=== PATIENT | female | born 2000 | race Caucasian/White ===

== ENCOUNTER 2018-08-13 03:03 | Emergency (ER) | payer BC, SELFPAY ==
[2018-08-13 03:12] VITALS: BP 123/77; PULSE 72; RESP 15; TEMP 36.3; O2SAT 98
--- NOTE | 2018-08-13 03:32 | ED.GENADUL_ITS ---
Discharge Plan Disposition Patient Disposition: HOME Condition: Good Discharge Details Chief Complaint: PsychEval Clinical Impression: Depression Primary Care Provider: Sobeida Silva ED Provider: Julio Hernandez Home Meds and New Rx's Prescriptions: No Action zonisamide 100 mg capsule 100 mg PO .AM RF: 0 medroxyprogesterone [Depo-Provera] 150 mg/mL suspension 150 mg IM [id number] RF: 0 aripiprazole 15 mg tablet 7.5 mg PO DAILY RF: 0 atomoxetine 60 mg capsule 60 mg PO DAILY RF: 0 vilazodone 40 mg tablet 40 mg PO DAILY RF: 0 cetirizine 10 mg tablet 10 mg PO DAILY RF: 0 levothyroxine [Unithroid] 75 mcg tablet 75 mcg PO DAILY RF: 0 ProAir HFA 90 mcg/actuation HFA aerosol inhaler 2 puff IH QID RF: 0 fluticasone 50 mcg/actuation spray,suspension 2 spray HARMEET DAILY RF: 0 melatonin 10 mg tablet 10 mg PO HS PRNRF: 0 Discharge Instructions Instructions: Depression (ED) Additional Instructions: Please utilize the resources of counseling, and follow-up that have been provided to you. Please use the appetite has been recommended to you by the mental health worker. If you have any thoughts of self-harm please call 911 and return immediately. If you notice any worsening of your symptoms, or any new symptoms such as vomiting, diarrhea, fever, chills, shortness of breath, chest pain, numbness, weakness, or fainting , please return immediately to the emergency department for reevaluation. Please follow up with your primary care provider as soon as possible for reassessment and reevaluation. As always, it was a pleasure participating in your medical care today. Referrals: Sobeida Silva [Primary Care Provider] - Medical Decision Making This is a pleasant 18-year-old female who presents for suicidal ideations. 3 has a history of suicidal attempt taking multiple pills, she has been at a rehab facility for quite some time was recently discharged in his started school at [employer]. She has been having a very hard time transitioning into this role, and feels that her chronic thoughts of suicide have become notably prominent, climaxing tonight with wanting to end her life. She has a plan it would be to take pills or cut herself deeply. She did perform a couple superficial abrasions over her left wrist, but no deep cuts. Tetanus is up-to-date. with the patient's clinical history, current complaints, I do feel that mental health evaluation is indicated, we will perform laboratory workup, and get a one-to-one. We have contacted mental health and they are coming to assess the patient. 5:11 AM Patient's laboratory workup is returned benign, TSH is slightly elevated however free T4 is normal. The patient was assessed by Angelique the mental health worker, and at this time chain feels that I believe the patient is safe for discharge home, I feel she can go home safely with close follow-up. She feels that after a long and thorough discussion with the patient that she does not actually have an acute plan to kill herself or the will to do it at this time. Patient is requesting discharge and does not want to be admitted to the facility at this time. Safety plan has been contracted with the patient, mental health worker, and the patient's significant other. We have elicited the help of the [employer] security staff as well. All sharp objects will be removed from the patient's room. Patient does have close follow-up with mental health on an outpatient basis this week. We discussed red flags which to return. I have extensively reviewed the treatment plan and discharge instructions with the patient. I have addressed all patient concerns at this time. The patient was made aware of what symptoms to monitor for that would warrant a return to the emergency department. Discussed the plan with the patient, they demonstrate verbal understanding and agreement with our assessment and plan at this time. HPI General Date/Time Provider Initiated Documentation: 08/13/18 03:20 . HPI Narrative: This is a 26-year-old female with a past medical history of depression, suicidal ideations, seizure, ADD, attempted suicide in the past via taking pills/excess trazodone, who presents today for evaluation of depression and suicidal thoughts. Patient states that she was at a rehab facility [place] for quite some time, and recently transitioned out of this to the local college here in [place]. She has been at college for the last 2 weeks and states that it is not been going well. She states that she always feels depressed and passively wants to hurt her self but while at the rehab facility those feelings were under control although still present. She states over the last 2 weeks they have notably grown and worse and now she is at the point where she is actively thinking of killing herself or taking her life. She states that earlier today she had continued thoughts of self-harm and took a clean kitchen knife and perform superficial abrasions to her left wrist. She then contacted mental health at her college who then brought her here. Patient denies taking any illicit drugs, access medications, or other things currently. She states that to kill herself she would either take a bunch of pills or cut herself deeply in the wrist. She denies any IV or illicit drug use. She denies any pertinent family history. She denies any other complaints or modifying factors at this time. Related Data Home Medications Medication Instructions Recorded Confirmed albuterol sulfate HFA 90 2 puff IH QID 07/19/18 08/13/18 mcg/actuation aerosol inhaler aripiprazole 15 mg tablet 7.5 mg PO DAILY tab 07/19/18 08/13/18 atomoxetine 60 mg capsule 60 mg PO DAILY 07/19/18 08/13/18 cetirizine 10 mg tablet 10 mg PO DAILY 07/19/18 08/13/18 fluticasone 50 mcg/actuation nasal 2 spray HARMEET DAILY 07/19/18 07/19/18 spray,suspension levothyroxine 75 mcg tablet 75 mcg PO DAILY 07/19/18 08/13/18 medroxyprogesterone 150 mg/mL 150 mg IM [id number] 07/19/18 07/19/18 intramuscular suspension melatonin 10 mg tablet 10 mg PO HS PRN 07/19/18 08/13/18 vilazodone 40 mg tablet 40 mg PO DAILY 07/19/18 08/13/18 zonisamide 100 mg capsule 100 mg PO .AM cap 07/19/18 08/13/18 Allergies Allergy/AdvReac Type Severity Reaction Status Date / Time No Known Allergies Allergy Verified 08/13/18 03:16 General Stated Complaint: PsychEval DENISE: 2 Review of Systems Review of Systems All systems reviewed & are unremarkable except as noted in HPI and below PFSH Medical History Anorexia (Acute) History of wisdom tooth extraction (Acute) Juvenile myoclonic epilepsy (Acute) Left fibular fracture (Acute) Hypothyroidism (Chronic) Family History Mother Uterine cancer Sad Father Alcohol abuse Paternal Grandfather Parkinsons Prostate cancer Maternal Grandfather Colon cancer Maternal Grandfather Colon cancer Maternal Grandmother Myocardial infarct Brother Asperger's syndrome Sister Healthy adult Social History Smoking/Tobacco Use Status: Current every day Exam Narrative Exam Narrative: 1.Const: Well-nourished, Well-developed, appearing stated age 2.Eyes: PERRL, no conjunctival injection, and symmetrical lids. 3.ENT: Atraumatic external nose and ears. Moist MM. Neck: Symmetric, trachea midline, No thyromegaly. 4.CVS: +S1/S2, No murmurs or gallops. Peripheral pulses 2+ and equal in all extremities. Brisk capillary refill in all extremities. 5.RESP: Unlabored respiratory effort. Clear to auscultation bilaterally. No wheezes rales or rhonchi 6.GI: Soft, Nontender/Nondistended, No hepatosplenomegaly. No guarding or rebound. 7.MSK: Normocephalic/Atraumatic, Extremities w/o deformity or ttp No cyanosis or clubbing, Normal movement of all extremities 8.Skin: Warm, Dry. 4-5 very small superficial abrasions over the left wrist. No evidence of lacerations, deep cuts, and something needing suturing. 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 Sensation grossly intact, no focal neurologic deficits. 10.Psych: (AAO) x3. Appropriate mood and affect Course Vital Signs Temperature 36.3 C L 08/13/18 03:12 Pulse 72 08/13/18 03:12 Respiratory Rate 15 08/13/18 03:12 Blood Pressure 123/77 08/13/18 03:12 Pulse Oximetry 98 08/13/18 03:12 Temperature 36.3 C L 08/13/18 03:12 Temperature Source Temporal Artery Scan 08/13/18 03:12 Pulse 72 08/13/18 03:12 Respiratory Rate 15 08/13/18 03:12 Respiratory Effort Non-Labored 08/13/18 03:19 Blood Pressure 123/77 08/13/18 03:12 Blood Pressure Position Sitting 08/13/18 03:12 Pulse Oximetry 98 08/13/18 03:12 Oxygen Delivery Method Room Air 08/13/18 03:12 Oxygen Flow Rate 0 08/13/18 03:12 Pain Level 2 08/13/18 03:12
[2018-08-13 04:02] LABS: Abs Immature Grans 0.01 k/cumm (0.0-0.09); Absolute Basophil Count 0.05 k/cumm (0.0-0.2); Absolute Eosinophil Count 0.23 k/cumm (0.0-0.7); Absolute Monocyte Count 0.55 k/cumm (0.11-0.7); Absolute Neutrophil Count 4.34 k/cumm (1.2-6.7); Basophils % 0.6; HCT 41.2 % (36.0-46.0); HGB 13.5 g/dL (12.0-15.5); Immature Grans % 0.1; Lymphocytes % 33.4; Mean Corp. HGB Concentration 32.8 g/dL (32.0-36.0); Mean Corpuscular Hemoglobin 27.5 pg (27.0-33.0); Mean Corpuscular Volume 83.9 fL (80-95); Mean Platelet Volume 11.6 fL (8.0-11.0); Monocytes % 7.1; Neutrophils % 55.8; Platelet Count 227 x1000/uL (130-400); RBC 4.91 m/cumm (4.00-5.20); RBC Distribution Width 13.5 % (11.7-14.6); White Blood Cell Count 7.78 k/cumm (4.4-10.8)
[2018-08-13 04:10] LABS: *AMPHETAMINES SCREEN URINE Negative (Negative); *BARBITURATES SCREEN URINE Negative (Negative); *BENZODIAZEPINES SCREEN URINE Negative (Negative); Cannabinoids THC Negative (Negative); Cocaine Screen,Urine Negative (Negative); METHADONE URINE SCREEN Negative (Negative); OPIATES URINE SCREEN Negative (Negative)
[2018-08-13 04:13] LABS: ETHANOL BLOOD < 3.0 mg/dL (<3)
[2018-08-13 04:13] LABS: Tricyclic Antidepressants Negative (Negative)
[2018-08-13 04:21] LABS: ALT 24 U/L (12-78); AST 21 U/L (15-37); Albumin 3.8 g/dL (3.4-5.0); Alkaline Phosphatase 95 U/L (46-116); Anion Gap 14.6 mmol/L (3-11); BUN 14 mg/dL (7-18); Bilirubin, Total 0.2 mg/dL (0.2-1.0); CO2 20.4 mmol/L (21.0-32.0); CREATININE 0.91 mg/dL (0.55-1.02); Calcium 9.1 mg/dL (8.5-10.1); Chloride 106 mmol/L (98-107); Glucose 107 mg/dL (70-100); Potassium 3.9 mmol/L (3.5-5.1); Sodium 141 mmol/L (136-145); TSH (W/Ref FT4) 8.55 uIU/mL (0.358-3.74); Total Protein 7.8 g/dL (6.4-8.2)
[2018-08-13 04:53] LABS: FREE T4 0.96 ng/dL (0.76-1.46)
--- NOTE | 2018-08-13 05:00 | NUR.NOTE ---
Nursing Note: Pt states she has texted male partner Maria Del Rosario Rodas, who will come to ED to participate in safety planning. Pt has also provided 2 numbers for public safety at [facility]...will call at provider's request to involve in safety planning.
[2018-08-13 05:14] LABS: Salicylate < 2.8 mg/dL (2.8-20.0)
[2018-08-13 05:17] LABS: Acetaminophen < 2 ug/mL (10-30)
--- NOTE | 2018-08-13 05:55 | PDOC.MHCN ---
Date of service: 08/13/18 Time of Service: 05:56 Mental Health Crisis Note Presenting Issue How did you arrive at the ED and why did you come: Patient had cut her wrist in an attempt to suicide. she was brought to ED by safety personnel from [facility]. She has just started classes after being in a residential treatment center for one year. Precipitating Factors Patient is a 18 yo female who is in hospital today because of her suicidal ideation. She had been in her dorm and got up and found a knife at the sink and cut herself. she reports having constant suicidal thoughts and not just one thing triggers these thoughts. She is alert and oriented, she does not have audio or visual hallucinations , just her own voice saying she wants to . This is an ongoing issue since she was in 2nd grade. She was a resident at [facility] in [place], [place] for one year and just started college 3 weeks ago. she is having a difficult time transitioning to college. Disposition BEHAVIOR: Her behavior is cooperative and friendly. EYE CONTACT: She makes good eye contact MOOD: Her mood is depressed. AFFECT: Her affect is congruent to mood., APPETITE: She is eating well. SLEEP(trouble falling/staying asleep: She has trouble falling and staying asleep. Plan Patient has contracted for [employer], and completed a safety plan that includes information about contacting [facility] or the suicide hotline. She has an appointment scheduled with her private therapist on Monday and appointment with [facility] on Monday. She has identified support people she has agreed to contact Emergency Services if her coping strategies are not working and she is in need of support., Dr. Hernandez discussed a safety plan with her and her boyfriend to include removing knives from the residence and taking any unprescribed medication. Follow up contact will be made from Emergency Services clinician from [facility]. Signature Clinician's Name/Title: Angelique Mitchell [facility] Emergency Services Clinician
[2018-08-13 06:07] VITALS: BP 124/78; PULSE 70; RESP 15; O2SAT 98
--- NOTE | 2018-08-13 06:09 | PDOC.MHCN_ITS ---
Date of service: 08/13/18 Time of Service: 05:56 Mental Health Crisis Note Presenting Issue How did you arrive at the ED and why did you come: Patient had cut her wrist in an attempt to suicide. she was brought to ED by safety personnel from [facility]. She has just started classes after being in a residential treatment center for one year. Precipitating Factors Patient is a 18 yo female who is in hospital today because of her suicidal ideation. She had been in her dorm and got up and found a knife at the sink and cut herself. she reports having constant suicidal thoughts and not just one thing triggers these thoughts. She is alert and oriented, she does not have audio or visual hallucinations , just her own voice saying she wants to . This is an ongoing issue since she was in 2nd grade. She was a resident at [facility] in [place], [place] for one year and just started college 3 weeks ago. she is having a difficult time transitioning to college. Disposition BEHAVIOR: Her behavior is cooperative and friendly. EYE CONTACT: She makes good eye contact MOOD: Her mood is depressed. AFFECT: Her affect is congruent to mood., APPETITE: She is eating well. SLEEP(trouble falling/staying asleep: She has trouble falling and staying asleep. Plan Patient has contracted for [employer], and completed a safety plan that includes information about contacting [facility] or the suicide hotline. She has an appointment scheduled with her private therapist on Monday and appointment with [facility] on Monday. She has identified support people she has agreed to contact Emergency Services if her coping strategies are not working and she is in need of support., Dr. Hernandez discussed a safety plan with her and her boyfriend to include removing knives from the residence and taking any unprescribed medication. Follow up contact will be made from Emergency Services clinician from [facility]. Signature Clinician's Name/Title: Angelique Mitchell [facility] Emergency Services Clinician
== END 2018-08-13 06:05 | disposition home or self-care (01) ==
PROVIDERS: Emergency Provider Student in an Organized Health Care Education/Training Program; PCP Physician Assistant Medical
DX: F32.9 Major depressive disorder, single episode, unspecified (principal); Z91.5 Personal history of self-harm
CPT/HCPCS: 36415; 80053; 80307; 81025; 99285; 80320; 80329; 84439; 84443; 85025; 99283

== ENCOUNTER 2018-10-12 11:42 | Emergency (ER) | payer BC, SELFPAY ==
[2018-10-12 11:47] VITALS: BP 119/78; PULSE 112; RESP 18; TEMP 37; O2SAT 97
--- NOTE | 2018-10-12 12:17 | ED.GENADUL_ITS ---
Discharge Plan Disposition Patient Disposition: HOME Condition: Stable Discharge Details Chief Complaint: PsychEval Clinical Impression: Depression Primary Care Provider: Sobeida Silva ED Provider: Nichole Anderson Home Meds and New Rx's Prescriptions: Continued zonisamide 100 mg capsule 100 mg PO .AM RF: 0 medroxyprogesterone [Depo-Provera] 150 mg/mL suspension 150 mg IM [id number] RF: 0 aripiprazole 15 mg tablet 7.5 mg PO DAILY RF: 0 atomoxetine 60 mg capsule 80 mg PO DAILY RF: 0 vilazodone 40 mg tablet 40 mg PO DAILY RF: 0 cetirizine 10 mg tablet 10 mg PO DAILY RF: 0 levothyroxine [Unithroid] 75 mcg tablet 75 mcg PO DAILY RF: 0 ProAir HFA 90 mcg/actuation HFA aerosol inhaler 2 puff IH QID RF: 0 fluticasone propionate 50 mcg/actuation spray,suspension 2 spray HARMEET DAILY RF: 0 melatonin 10 mg tablet 10 mg PO HS PRNRF: 0 Discharge Instructions Instructions: Depression (ED) Additional Instructions: Take your regular medications as directed. Follow-up with your scheduled appointment with your nurse at [facility] on Monday. Return immediately to the emergency department with any worsening or new concerning symptoms. Discharge Data Discharge Physician: Nichole Anderson Medical Decision Making 18-year-old female with a history of ADHD, PTSD, any depression who presents for suicidal ideation for the past month, worse over the past 2 days. Has a plan to overdose on pills. Heart rate tachycardic, remainder vitals within normal limits. No significant acute findings on exam. Will check screening labs, UDS, alcohol. Urine test negative. She admits to chronic body aches and pain and is requesting that her thyroid be checked. Will check a TSH. 1330 --patient is medically cleared. Will call behavioral health. 1500 --behavioral health evaluated patient at bedside and was found to be appropriate for discharge. Patient states she is currently not feeling suicidal and that she has not cut herself in a few days. She is being futuristic with plans to follow-up with her WATER SOFTENER INSTALLER at [facility] on Monday. She has plans to return to school. She has plans to stay in her room tonight and will give all of her medication to her boyfriend. She states she feels good to go home. A friend from school is going to pick her up and stay with her tonight. She is instructed to return here with any concerns. Medical Records Medical records reviewed: Yes I reviewed the patient's medical records. Lab Data Lab results reviewed: Yes I reviewed the patient's lab results. Laboratory Tests Range/Units 10/12/18 10/12/18 10/12/18 12:05 12:05 12:41 WBC (4.4-10.8) k/cumm RBC (4.00-5.20) m/cumm Hgb (12.0-15.5) g/dL Hct (36.0-46.0) % MCV (80-95) fL MCH (27.0-33.0) pg MCHC (32.0-36.0) g/dL RDW (11.7-14.6) % Plt Count (130-400) x1000/uL MPV (8.0-11.0) fL Immature Gran % Neutrophils % Lymphocytes % Monocytes % Eosinophils % Basophils % Absolute Neutrophils (1.2-6.7) k/cumm Absolute Lymphocytes (1.2-3.4) k/cumm Absolute Monocytes (0.11-0.7) k/cumm Absolute Eosinophils (0.0-0.7) k/cumm Absolute Basophils (0.0-0.2) k/cumm Sodium (136-145) mmol/L 142 Potassium (3.5-5.1) mmol/L 3.9 Chloride (98-107) mmol/L 108 H Carbon Dioxide (21.0-32.0) mmol/L 22.6 Anion Gap (3-11) mmol/L 11.4 H BUN (7-18) mg/dL 12 Creatinine (0.55-1.02) mg/dL 0.96 Estimated GFR/1.73 m2 (mL/min/1.73m2) >= 60.00 Glucose (70-100) mg/dL 101 H Calcium (8.5-10.1) mg/dL 9.0 Total Bilirubin (0.2-1.0) mg/dL 0.3 AST (15-37) U/L 21 ALT (12-78) U/L 25 Alkaline Phosphatase (46-116) U/L 117 H Total Protein (6.4-8.2) g/dL 7.6 Albumin (3.4-5.0) g/dL 3.9 TSH (0.358-3.74) uIU/mL Urine Color (Yellow) Yellow Urine Clarity Clear Urine pH (5-8) 6.0 Ur Specific [place] (1.005-1.025) 1.010 Urine Protein (Negative) mg/dL Negative Urine Ketones (Negative) mg/dL Negative Urine Blood (Negative) Negative Urine Nitrite (Negative) Negative Urine Bilirubin (Negative) Negative Urine Urobilinogen (Up TO 0.2) EU/dL 0.2 Ur Leukocyte Esterase (Negative) Negative Urine Glucose (Negative) mg/dL Negative Urine Opiates Screen (Negative) Negative Urine Methadone Screen (Negative) Negative Ur Barbiturates Screen (Negative) Negative Ur Tricyclics Screen (Negative) Negative Ur Amphetamines Screen (Negative) Negative U Benzodiazepines Scrn (Negative) Negative Urine Cocaine Screen (Negative) Negative Ur THC Screen (Negative) Negative Ethyl Alcohol (<3) mg/dL < 3.0 Range/Units 10/12/18 10/12/18 12:41 12:41 WBC (4.4-10.8) k/cumm 6.77 RBC (4.00-5.20) m/cumm 4.93 Hgb (12.0-15.5) g/dL 13.4 Hct (36.0-46.0) % 41.2 MCV (80-95) fL 83.6 MCH (27.0-33.0) pg 27.2 MCHC (32.0-36.0) g/dL 32.5 RDW (11.7-14.6) % 14.2 Plt Count (130-400) x1000/uL 211 MPV (8.0-11.0) fL 11.0 Immature Gran % 0.1 Neutrophils % 65.2 Lymphocytes % 27.2 Monocytes % 5.9 Eosinophils % 1.3 Basophils % 0.3 Absolute Neutrophils (1.2-6.7) k/cumm 4.41 Absolute Lymphocytes (1.2-3.4) k/cumm 1.84 Absolute Monocytes (0.11-0.7) k/cumm 0.40 Absolute Eosinophils (0.0-0.7) k/cumm 0.09 Absolute Basophils (0.0-0.2) k/cumm 0.02 Sodium (136-145) mmol/L Potassium (3.5-5.1) mmol/L Chloride (98-107) mmol/L Carbon Dioxide (21.0-32.0) mmol/L Anion Gap (3-11) mmol/L BUN (7-18) mg/dL Creatinine (0.55-1.02) mg/dL Estimated GFR/1.73 m2 (mL/min/1.73m2) Glucose (70-100) mg/dL Calcium (8.5-10.1) mg/dL Total Bilirubin (0.2-1.0) mg/dL AST (15-37) U/L ALT (12-78) U/L Alkaline Phosphatase (46-116) U/L Total Protein (6.4-8.2) g/dL Albumin (3.4-5.0) g/dL TSH (0.358-3.74) uIU/mL 3.38 Urine Color (Yellow) Urine Clarity Urine pH (5-8) Ur Specific [place] (1.005-1.025) Urine Protein (Negative) mg/dL Urine Ketones (Negative) mg/dL Urine Blood (Negative) Urine Nitrite (Negative) Urine Bilirubin (Negative) Urine Urobilinogen (Up TO 0.2) EU/dL Ur Leukocyte Esterase (Negative) Urine Glucose (Negative) mg/dL Urine Opiates Screen (Negative) Urine Methadone Screen (Negative) Ur Barbiturates Screen (Negative) Ur Tricyclics Screen (Negative) Ur Amphetamines Screen (Negative) U Benzodiazepines Scrn (Negative) Urine Cocaine Screen (Negative) Ur THC Screen (Negative) Ethyl Alcohol (<3) mg/dL HPI General Mode of arrival: ambulatory . Date/Time Provider Initiated Documentation: 10/12/18 12:12 . Limitations to Documentation: no limitations . Information obtained by: patient . HPI Narrative: Patient is a 18-year-old female with a history of PTSD, anxiety, depression, ADHD, hypothyroidism who presents for suicidal ideation for the past month, worse over the past few days. She admits to self-harm with cutting her left arm recently. She states she feels like she has been in a brain fog and depressed for the past 2 days and now feels more suicidal. She states she has thoughts of wanting to overdose on all of her medications. She does admit to previous suicide attempt at age 12 when she overdosed on medications. She states she was in [facility] in for a mood disorder from July 2017 to July 2018. She states since she left there 2 months ago she has been increasingly feeling depressed and suicidal. She also admits to occasional whispers in her ears but states they are incoherent. She states this has been overall better since starting her Abilify 5 years ago. She admits to chronic body aches and chronic body pain which just she thinks is due to her thyroid. She states she has been taking all of her medications. She states she has been eating and drinking normally denies any fever or vomiting. Related Data Home Medications Medication Instructions Recorded Confirmed albuterol sulfate HFA 90 2 puff IH QID 07/19/18 10/12/18 mcg/actuation aerosol inhaler aripiprazole 15 mg tablet 7.5 mg PO DAILY tab 07/19/18 10/12/18 atomoxetine 60 mg capsule 80 mg PO DAILY 07/19/18 10/12/18 cetirizine 10 mg tablet 10 mg PO DAILY 07/19/18 10/12/18 fluticasone propionate 50 2 spray HARMEET DAILY 07/19/18 10/12/18 mcg/actuation nasal spray,suspension levothyroxine 75 mcg tablet 75 mcg PO DAILY 07/19/18 10/12/18 medroxyprogesterone 150 mg/mL 150 mg IM [id number] 07/19/18 10/12/18 intramuscular suspension melatonin 10 mg tablet 10 mg PO HS PRN 07/19/18 10/12/18 vilazodone 40 mg tablet 40 mg PO DAILY 07/19/18 10/12/18 zonisamide 100 mg capsule 100 mg PO .AM cap 07/19/18 10/12/18 Allergies Allergy/AdvReac Type Severity Reaction Status Date / Time No Known Allergies Allergy Verified 10/12/18 11:57 General Stated Complaint: PsychEval DENISE: 2 Review of Systems Review of Systems All systems reviewed & are unremarkable except as noted in HPI and below Constitutional Reports as per HPI, Denies chills and Denies fever(s) Eyes Denies blurry vision ENT Denies dizziness, Denies sore throat and Denies throat swelling Cardiovascular Denies chest pain and Denies dyspnea Respiratory Denies cough and Denies dyspnea Gastrointestinal Denies abdominal pain, Denies diarrhea and Denies vomiting Genitourinary Denies hematuria and Denies dysuria Musculoskeletal Denies back pain and Denies numbness Integumentary/Breasts Denies lesions and Denies rash Neurologic Denies dizziness, Denies focal weakness and Denies numbness Psychiatric Reports depression, Reports auditory hallucinations, Denies homicidal ideation and Reports suicidal ideation Allergic/Immunologic Denies throat swelling [facility] Medical History Anorexia (Acute) History of wisdom tooth extraction (Acute) Juvenile myoclonic epilepsy (Acute) Left fibular fracture (Acute) Hypothyroidism (Chronic) Family History Mother Uterine cancer Sad Father Alcohol abuse Paternal Grandfather Parkinsons Prostate cancer Maternal Grandfather Colon cancer Maternal Grandfather Colon cancer Maternal Grandmother Myocardial infarct Brother Asperger's syndrome Sister Healthy adult Social History Smoking/Tobacco Use Status: Current every day Tobacco Type: e-cigarettes Drug use: Never Substance use type: does not use Do you feel safe at home: Yes Do you feel safe in your relationship?: Yes Additional Social history: just not safe with myself Exam Const General: cooperative, healthy appearing and no acute distress HENMT Head: normal to inspection Face and sinus: normal facial exam Eyes General: appearance normal, both eyes and all related structures Pupils: PERRL EOM: EOM intact bilaterally Neck Neck: normal visual inspection and No submandibular swelling Lymphatic: no lymphadenopathy noted Chest Chest: normal inspection of the chest and no tenderness Resp Effort & Inspection: normal respiratory effort and able to speak in complete sentences Auscultation: clear to auscultation bilaterally Cardio Rate: regular rate Rhythm: regular rhythm GI Inspection: normal to inspection Palpation: soft, not firm, not rigid and nontender Auscultation: normal bowel sounds Skin General skin exam: no rashes or lesions noted Neuro General: alert, awake and oriented x3 Cognition: normal cognition Speech: speech normal Motor: muscle tone normal throughout Sensory Exam: no sensory deficits noted Extrem General: full ROM and no edema Other: Superficial lacerations noted to left volar forearm. Psych Appearance: grossly normal Mental Status: mental status grossly normal Speech and Movement: speech and movement normal Affect: normal affect Course Vital Signs Temperature 98.6 F 10/12/18 11:47 Pulse 112 H 10/12/18 11:47 Respiratory Rate 18 10/12/18 11:47 Blood Pressure 119/78 10/12/18 11:47 Pulse Oximetry 97 10/12/18 11:47 Temperature 98.6 F 10/12/18 11:47 Temperature Source Temporal Artery Scan 10/12/18 11:47 Pulse 112 H 10/12/18 11:47 Respiratory Rate 18 10/12/18 11:47 Respiratory Effort Non-Labored 10/12/18 11:56 Blood Pressure 119/78 10/12/18 11:47 Blood Pressure Position Sitting 10/12/18 11:47 Pulse Oximetry 97 10/12/18 11:47 Oxygen Delivery Method Room Air 10/12/18 11:47 Oxygen Flow Rate 0 10/12/18 11:47 Pain Level 0 10/12/18 11:47 Lab/Test Results Lab/Test Results: POC- Test(urine) Negative
[2018-10-12 12:18] LABS: Bilirubin Negative (Negative); Blood Negative (Negative); Clarity Clear; Glucose Negative (Negative); Ketones Negative (Negative); Leukocyte Esterase Negative (Negative); Nitrite Negative (Negative); Urobilinogen 0.2 EU/dL (Up TO 0.2)
[2018-10-12 12:30] LABS: *AMPHETAMINES SCREEN URINE Negative (Negative); *BARBITURATES SCREEN URINE Negative (Negative); *BENZODIAZEPINES SCREEN URINE Negative (Negative); Cannabinoids THC Negative (Negative); Cocaine Screen,Urine Negative (Negative); METHADONE URINE SCREEN Negative (Negative); OPIATES URINE SCREEN Negative (Negative)
[2018-10-12 12:31] LABS: Tricyclic Antidepressants Negative (Negative)
[2018-10-12 12:48] LABS: Abs Immature Grans 0.01 k/cumm (0.0-0.09); Absolute Basophil Count 0.02 k/cumm (0.0-0.2); Absolute Eosinophil Count 0.09 k/cumm (0.0-0.7); Absolute Lymphocyte Count 1.84 k/cumm (1.2-3.4); Absolute Neutrophil Count 4.41 k/cumm (1.2-6.7); Basophils % 0.3; Eosinophils % 1.3; HCT 41.2 % (36.0-46.0); HGB 13.4 g/dL (12.0-15.5); Immature Grans % 0.1; Lymphocytes % 27.2; Mean Corp. HGB Concentration 32.5 g/dL (32.0-36.0); Mean Corpuscular Hemoglobin 27.2 pg (27.0-33.0); Mean Corpuscular Volume 83.6 fL (80-95); Monocytes % 5.9; Neutrophils % 65.2; Platelet Count 211 x1000/uL (130-400); RBC 4.93 m/cumm (4.00-5.20); RBC Distribution Width 14.2 % (11.7-14.6); White Blood Cell Count 6.77 k/cumm (4.4-10.8)
[2018-10-12 13:12] LABS: ALT 25 U/L (12-78); AST 21 U/L (15-37); Albumin 3.9 g/dL (3.4-5.0); Alkaline Phosphatase 117 U/L (46-116); Anion Gap 11.4 mmol/L (3-11); BUN 12 mg/dL (7-18); Bilirubin, Total 0.3 mg/dL (0.2-1.0); CO2 22.6 mmol/L (21.0-32.0); CREATININE 0.96 mg/dL (0.55-1.02); Chloride 108 mmol/L (98-107); Glucose 101 mg/dL (70-100); Potassium 3.9 mmol/L (3.5-5.1); Sodium 142 mmol/L (136-145); Total Protein 7.6 g/dL (6.4-8.2)
--- NOTE | 2018-10-12 13:25 | PDOC.ERCMPRO ---
Care Management Progress Note 10/12-Adan (Lazara) presents to the emergency department suicidal. He states he would overdose on pills. Adan also states that he is a cutter. Lazara, likes to be identified as Adan, is a 18 year old that attends [employer] in [place]. Adan states he is taking medications and is in the middle of transitioning from female to male. He has a history of ADHD, PTSD, and depression. Adan states he has had some self cutting in the past. This CM met with Adan and his friend Maria Del Rosario was in the room at Adan's request. Adan easily engages in conversation and makes eye contact with this CM. He is pleasant and very open. Adan has demonstrated appropriate coping and communication skills while discussing safety plan. Multiple past suicidal attempts. September 2015, and October 2016 Adan was admitted to [facility] in [facility][1] for inpatient psychiatric. Adan was also admitted to [facility] from July 2017-July 2018 for suicidal ideation. August 13, 2018 Adan was seen in [facility] Emergency Department for suicidal ideations. He transitioned from [facility] to [facility] in July and things have not been going well. Adan is having difficulty coping with the transition and feels that the suicidal thoughts have increased since leaving [facility]. Sylvain Mom Angelique Foley lives in [place] and he has been texting both his mom and dad keeping them updated as to what is happening. Adan is also in a relationship with Maria Del Rosario Rodas who is here with him for support. Mom is on the demographics. Other people that Adan would be engaged with is his father Cleveland Foley. Discussed and reviewed safety plan with Adan. Dr. Anderson, and nursing aware of the safety plan and in agreement. Patient has now been medically cleared. Mental Health financial analysis advisor has been called in. E.R. 10/12/18 VOLUNTARY FOR INPATIENT PSYCHIATRIC STABILIZATION. Patient is appropriate in all interactions since arriving at [facility]; Pt has demonstrated appropriate coping and communication skills, has articulated his needs and concerns and is fully engaged during staff interactions. Safety plan has been established with patient, and care team, to adhere to patient goals, identify restrictions based on behavioral status, address nutrition, and determine allowed personal belongings, tools for hygiene and personal care. Determine level of activity including ambulation, level of supervision, visitors, and determine privileges based on behaviors and level of engagement by pt. SAFETY PLAN: 1. Will remain on suicide precautions. In Paper Clothes 2. Will remain in room under direct supervision of one-on-one staff at all times provided by [employer]; SUSSY, RIP MACHINE OPERATOR inspector final assembly electrical. 3. May have paper cups, plates, finger foods as well as a metal spoon with which to eat meals. [facility] staff will be responsible for accounting of utensils after meals. Patient does not eat red meat. Poultry and fish only. 4. Follow [facility] Management of the Admitted Behavioral Health Patient policy. 5. Comfort bath system only. May have shower if staffing available. 6. No personal belongings in room 7. Visitors: Boysully Mix may visit 8. Activities: May have activities from the mental health activity cart. No pens or pencils. Television if available. 9. Bathroom privileges with escort from [employer]/staff 10. Adan is allowed to have his own cell phone in the room. He can accept and make calls to his mom 11. Due to VOLUNTARY status, if patient wishes to leave [facility], the [facility] milk house worker must be contacted to re-evaluate patient prior to patient exiting the building. Patient is currently voluntarily at [facility] and seeking inpatient admission when a bed becomes available. [facility] Frontline Olive Knocker will continue seeking placement. Please contact the Commercial Retoucher Vacuum Tank Tender ([phone]) and [facility] Olive Knocker ([phone]) for any needed changes in the Safety Plan. Safety plan has been provided to interdepartmental care team including Clinical Coordinator, Nursing Instrument Technician Apprentice.
[2018-10-12 13:28] LABS: ETHANOL BLOOD < 3.0 mg/dL (<3)
[2018-10-12 13:36] LABS: TSH (W/Ref FT4) 3.38 uIU/mL (0.358-3.74)
--- NOTE | 2018-10-12 13:55 | CMPROGNOTE_ITS ---
Care Management Progress Note 10/12-Adan (Lazara) presents to the emergency department suicidal. He states he would overdose on pills. Adan also states that he is a cutter. Lazara, likes to be identified as Adan, is a 18 year old that attends [employer] in [place]. Adan states he is taking medications and is in the middle of transitioning from female to male. He has a history of ADHD, PTSD, and depression. Adan states he has had some self cutting in the past. This CM met with Adan and his friend Maria Del Rosario was in the room at Adan's request. Adan easily engages in conversation and makes eye contact with this CM. He is pleasant and very open. Adan has demonstrated appropriate coping and communication skills while discussing safety plan. Multiple past suicidal attempts. September 2015, and October 2016 Adan was admitted to [facility] in [facility] for inpatient psychiatric. Adan was also admitted to [facility] from July 2017-July 2018 for suicidal ideation. August 13, 2018 Adan was seen in [facility] Emergency Department for suicidal ideations. He transitioned from [facility] to [facility] in July and things have not been going well. Adan is having difficulty coping with the transition and feels that the suicidal thoughts have increased since leaving [facility]. Sylvain Mom Angelique Foley lives in [place] and he has been texting both his mom and dad keeping them updated as to what is happening. Adan is also in a relationship with Maria Del Rosario Rodas who is here with him for support. Mom is on the demographics. Other people that Adan would be engaged with is his father Cleveland Foley. Discussed and reviewed safety plan with Adan. Dr. Anderson, and nursing aware of the safety plan and in agreement. Patient has now been medically cleared. Mental Health admissions clinician has been called in. E.R. 10/12/18 VOLUNTARY FOR INPATIENT PSYCHIATRIC STABILIZATION. Patient is appropriate in all interactions since arriving at [facility]; Pt has demonstrated appropriate coping and communication skills, has articulated his needs and concerns and is fully engaged during staff interactions. Safety plan has been established with patient, and care team, to adhere to patient goals, identify restrictions based on behavioral status, address nutrition, and determine allowed personal belongings, tools for hygiene and personal care. Determine level of activity including ambulation, level of sup ervision, visitors, and determine privileges based on behaviors and level of engagement by pt. SAFETY PLAN: 1. Will remain on suicide precautions. In Paper Clothes 2. Will remain in room under direct supervision of one-on-one staff at all times provided by [employer]; SUSSY, BAND SAW RUNNER independent living advisor. 3. May have paper cups, plates, finger foods as well as a metal spoon with which to eat meals. [facility] staff will be responsible for accounting of utensils after meals. Patient does not eat red meat. Poultry and fish only. 4. Follow [facility] Management of the Admitted Behavioral Health Patient policy. 5. Comfort bath system only. May have shower if staffing available. 6. No personal belongings in room 7. Visitors: Haley Mix may visit 8. Activities: May have activities from the mental health activity cart. No pens or pencils. Television if available. 9. Bathroom privileges with escort from [employer]/staff 10. Adan is allowed to have his own cell phone in the room. He can accept and make calls to his mom 11. Due to VOLUNTARY status, if patient wishes to leave [facility], the [facility] forest nursery worker must be contacted to re-evaluate patient prior to patient exiting the building. Patient is currently voluntarily at [facility] and seeking inpatient admission when a bed becomes available. [facility] Frontline Residential Real Estate Sales Manager will continue seeking placement. Please contact the Electric Wirer Clerk Stenographer ([phone]) and [facility] Residential Real Estate Sales Manager ([phone]) for any needed changes in the Safety Plan. Safety plan has been provided to interdepartmental care team including Clinical Coordinator, Nursing Functional Analyst.
--- NOTE | 2018-10-12 15:11 | PDOC.MHCN ---
Date of service: 10/12/18 Time of Service: 15:12 Mental Health Crisis Note Presenting Issue How did you arrive at the ED and why did you come: Lazara came to [facility] due to having suicidal ideation and feeling triggered to do something. Precipitating Factors Lazara discussed her trauma and nightmares. She identified a future appointment with a prescriber that may prescribe her medication that helps prevent nightmares. She discussed harsh versus compassionate thinking and the importance of reducing shame based thought patterns that relate to traumatic memories. She did not identify being suicidal or homicidal at this time, but she disclosed of feeling overwhelmed. She was able to identify clinical, natural, and family supports that she can use to help her cope with her mental health more efficiently. Disposition BEHAVIOR: good insight and judgment, reflective EYE CONTACT: good MOOD: depressed AFFECT: constricted APPETITE: fair SLEEP(trouble falling/staying asleep: trouble staying asleep, hopes to address this with EXCHANGE ADMINISTRATOR Plan Lazara will be released to her college apartment. She has support from her boyfriend. She will continue to call [facility] emergency services if needed. She will follow-up with EXCHANGE ADMINISTRATOR. Signature Clinician's Name/Title: Marcos Rowe MA [facility]
--- NOTE | 2018-10-12 15:18 | PDOC.MHCN_ITS ---
Date of service: 10/12/18 Time of Service: 15:12 Mental Health Crisis Note Presenting Issue How did you arrive at the ED and why did you come: Lazara came to [facility] due to having suicidal ideation and feeling triggered to do something. Precipitating Factors Lazara discussed her trauma and nightmares. She identified a future appointment with a prescriber that may prescribe her medication that helps prevent nightmar es. She discussed harsh versus compassionate thinking and the importance of reducing shame based thought patterns that relate to traumatic memories. She did not identify being suicidal or homicidal at this time, but she disclosed of feeling overwhelmed. She was able to identify clinical, natural, and family supports that she can use to help her cope with her mental health more efficiently. Disposition BEHAVIOR: good insight and judgment, reflective EYE CONTACT: good MOOD: depressed AFFECT: constricted APPETITE: fair SLEEP(trouble falling/staying asleep: trouble staying asleep, hopes to address this with JAVA SOFTWARE ARCHITECT Plan Lazara will be released to her college apartment. She has support from her boyfriend. She will continue to call [facility] emergency services if needed. She will follow-up with JAVA SOFTWARE ARCHITECT. Signature Clinician's Name/Title: Marcos Rowe MA [facility]
== END 2018-10-12 15:10 | disposition home or self-care (01) ==
PROVIDERS: Emergency Provider Physician Assistant; PCP Physician Assistant Medical
DX: F32.9 Major depressive disorder, single episode, unspecified (principal); R45.851 Suicidal ideations
CPT/HCPCS: 36415; 80053; 80307; 99285; 80320; 81003; 84443; 85025; 99284

== ENCOUNTER 2018-10-26 14:18 | Outpatient (REF) | payer BC, SELFPAY ==
[2018-10-29 15:15] LABS: Chlamydia Result Negative; GC Result Negative; Specimen Description URINE
== END 2018-10-26 14:38 ==
LOC: LBN 14:18
PROVIDERS: PCP Physician Assistant Medical; Visit Provider Nurse Practitioner Women's Health
DX: Z11.3 Encounter for screening for infections with a predominantly sexual mode of transmission (principal)
CPT/HCPCS: 87491; 87591

== ENCOUNTER 2018-12-28 02:46 | Outpatient (CLI) | payer BC, SELFPAY | END 2018-12-28 03:06 | PROVIDERS: PCP Physician Assistant Medical; Visit Provider Psychiatry & Neurology Neurology | DX: R00.2 Palpitations (principal) | CPT/HCPCS: 93005; 93010; 93225 ==

== ENCOUNTER 2018-12-31 09:26 | Outpatient (CLI) | payer BC, SELFPAY ==
--- NOTE | 2019-01-01 11:15 | HOLTER_ITS ---
DATE OF DICTATION: December 31, 2018 48-HOUR STUDY Baseline rhythm sinus. Rare single PAC. No SVT or atrial fibrillation. Rare single PVC. No VT. Nocturnal heart rates as low as 55-60 bpm, sinus bradycardia. SYMPTONS: Racing noted twice during sinus rhythm 104, 122 bpm. Chest pain noted once during sinus rhythm 96 bpm, no ST-T wave changes. Dizziness/palpitations noted once during sinus rhythm 124 bpm. Average heart rate 95 bpm.
== END 2018-12-31 09:46 ==
PROVIDERS: PCP Physician Assistant Medical; Visit Provider Psychiatry & Neurology Neurology
DX: R00.2 Palpitations (principal)
CPT/HCPCS: 93226